=== PATIENT | female | born 1960 | race African-American/Black ===

== ENCOUNTER → 2025-05-21 15:28 | Outpatient (REF) | payer OTHER, SELFPAY ==
--- NOTE | 2025-05-21 15:28 | S_PTH ---
PATIENT: Kasandra Weeks LOC: [facility] U#:[id number] AGE/SX: 64/F ROOM: RE05/21/[address]: Katie Pandya PA-C : 1960 BED: DIS: SPEC #: [id number] RECD: 05/22/25 07:41 STATUS: MARYANNE REJason #: [id number] COLEMAN: 05/21/25 15:[address]: Katie Pandya DEPT: [facility] Surgical RECD BY: Leela Santos ENTERED: 05/22/25 07:42 SP TYPE: Surgical OTHR DR: Damir Samuels, Tissues: A - Skin B - Skin Procedures: Hematoxylin and Eosin Stain Gross and Microscopic Level 4
== END ==
LOC: ANHLAB 15:28
PROVIDERS: PCP Internal Medicine; Visit Provider Physician Assistant Surgical
DX: L82.1 Other seborrheic keratosis (principal)
CPT/HCPCS: 88305